=== PATIENT | female | born 1995 ===

== ENCOUNTER 2020-09-09 11:30 | Day surgery (SDC) | payer OTHER ==
--- NOTE | 2020-09-09 11:30 | NUR ---
PATIENT IS A&O. VSS. RATES RIGHT FLANK PAIN AT 3/10. PATIENT REPORTS A HISTORY OF KIDNEY STONES. PATIENT WAS TRANSFERED FROM [facility] WITH 22 GAUGE IV INTO HER RIGHT HAND WITH FLUIDS INFUSING. NO C/O N/V. NPO FOR SURGERY. HEAD TO TOE ASSESSMENT COMPLETE. ORIENTED TO ROOM. CALL LIGHT IN REACH. [facility] NOTIFIED OF ARRIVAL.
[2020-09-09 11:40] VITALS: BP 142/93; PULSE 76; TEMP 97.8
[2020-09-09] MEDS ORDERED: NORCO 325 MG-51 TAB PO ×2 (13:46→16:49)
[2020-09-09] MEDS ORDERED: FLOMAX 0.40.4 MG/CAP PO ×3 (13:47→16:49)
[2020-09-09 14:15] VITALS: BP 142/88; PULSE 65; TEMP 97.8
--- NOTE | 2020-09-09 14:15 | NUR ---
PATIENT BACK IN ROOM 323 POST OP. ORIENTED BUT A LITTLE DROWSY POST OP. VSS. PATIENT C/O MILD BLADDER IRRITATION. PATIENT GIVEN A B&O IN PACU. UPON ENTERING THE ROOM, PATIENT WAS ABLE TO AMBULATED TO BATHROOM AND VOID. PATIENT ASKING ABOUT EATING, LOOKING AT MENU. HEAD TO TOE ASSESSMENT WNL. ORIENTED TO ROOM. CALL LIGHT IN REACH.
[2020-09-09 14:30] VITALS: BP 136/67; PULSE 70
[2020-09-09 14:45] VITALS: BP 132/75; PULSE 63
[2020-09-09 15:00] VITALS: BP 132/87; PULSE 65
--- NOTE | 2020-09-09 16:30 | NUR ---
PATIENT MEET DISCHARGE CRITERIA. GAVE DISCHARGE INSTRUCTIONS, E-SCRIPTS SENT, AND F/U APT DISCUSSED. ANSWERED ALL QUESTIONS/CONCERNS. DC'D RIGHT HAND IV, COVERED SITE WITH GAUZE & BANDAID. PATIENT ESCORTED OUT TO PERSONAL VEHICLE WHERE IS WAITING.
== END 2020-09-09 16:30 | disposition home or self-care (01) ==
LOC: SURG 11:30 → SDCO 11:30
DX: N20.1 Calculus of ureter (principal); N28.89 Other specified disorders of kidney and ureter
CPT/HCPCS: OP; C1769; C2617; J0690; J1100; J2405; J2704; J3010